=== PATIENT | male | born 1995 | race Caucasian/White ===

== ENCOUNTER 2024-05-02 22:13 | Emergency (ER) | payer SELFPAY ==
[2024-05-02 22:41] LABS: Absolute Basophils 0.1 K/uL (0-0.5); Absolute Eosinophils 0.2 K/uL (0-0.5); Absolute Lymphocytes (CBC) 1.9 K/uL (0.7-4.9); Absolute Monocytes 0.6 K/uL (0.1-1.3); Absolute Neutrophil 5.5 K/uL (1.8-8.0); Basophils % 0.8 % (0-1.3); Eosinophils % 2.6 % (0-4.4); Hematocrit 44.9 % (39.6-49.0); Hemoglobin 15.3 g/dL (13.6-17.9); Lymphocytes % 22.9 % (15.3-44.8); MCH 28.7 pg (27.0-35.0); MCV 84.4 fL (80-100); MPV 6.9 fL (7.6-11.3); Monocytes % 7.8 % (3.3-12.3); Neutrophils % 65.9 % (41.7-73.7); Nucleated Red Blood Cells % 0.2 % (0-0); Platelets 352 thou/uL (152-406); RBC Red Blood Cell Count 5.32 M/uL (4.33-5.43); Red Cell Distribution Width 14.5 % (12.1-15.2)
[2024-05-02] MEDS ORDERED: NA CHLORIDE 0.9% 1,000 ML ONE (22:44)
[2024-05-02 23:00] LABS: ALT/SGPT 52 U/L (16-61); AST/SGOT 18 U/L (15-37); Albumin 3.6 g/dL (3.4-5.0); Alkaline Phosphatase 93 U/L (45-117); Anion Gap 8.7 mEq/L (5.0-15.0); BUN Blood Urea Nitrogen 16 mg/dL (7-18); Bicarbonate 27 mEq/L (21-32); Bilirubin Direct < 0.2 mg/dL (0-0.2); Bilirubin Total 0.2 mg/dL (0.2-1.0); Globulin 3.5 g/dL (2.3-3.5); Glomerular Filtration Rate 122 ml/min (=/>90); Glucose Level 147 mg/dL (74-106); Potassium 3.7 mEq/L (3.5-5.1); Protein, Total 7.1 g/dL (6.4-8.2); Sodium Level 137 mEq/L (136-145); Troponin High Sensitivity 4.6 pg/mL (<58.9)
--- NOTE | 2024-05-03 00:34 | EDPHYS ---
Physician Documentation [facility] Name: Reza Alvarado Age: 28 yrs Sex: Male : 1995 Arrival Date: 05/02/2024 Time: 22:13 Bed 16 Private MD: ED Physician Denzel Hernandez HPI: 05/03 00:30 This 28 yrs old Male presents to ER via EMS with complaints of Chest Pain. 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 States he had similar symptoms last night, but without lightheadedness so he thought it was just gas. Stateshe told his coworker about it and they called medical who recommended he come to the ER. Pt was given aspirin and nitro in route. . Historical: - Allergies: 05/02 22:13 No Known Allergies; ss - Home Meds: 22:13 None [Active]; ss - PMHx: 22:13 None; ss - PSHx: 22:13 None; ss - Immunization history:: Client reports having NOT received the Covid vaccine. - Infectious Disease History:: Denies. - Social history:: Smoking status: Reported history of juuling and/or vaping. ROS: 22:26 Constitutional: As per HPI kb Exam: 22:26 Constitutional: This is a well developed, well nourished patient who is awake, alert, kb and in no acute distress. Head/Face: Normocephalic, atraumatic. ENT: Moist Mucous membranes Cardiovascular: Regular rate Respiratory: Respirations even and unlabored. No increased work of breathing. Talking in full sentences Abdomen/GI: Soft, non-tender. No distention Skin: Warm, dry with normal turgor. Normal color. MS/ Extremity: Pulses equal, no cyanosis. Neurovascular intact. Full, normal range of motion. Neuro: Awake and alert, GCS 15, oriented to person, place, time, and situation. Moves all extremities. Normal gait. 22:26 ECG was reviewed by the Attending Physician. Vital Signs: 22:13 BP 146 / 88; Pulse 85; Resp 14; Temp 98.5; Pulse Ox 99% ; Weight 117.93 kg; Height 5 ss ft. 8 in. ; Pain 0/10; 23:00 BP 120 / 80; Pulse 89; Resp 20; Pulse Ox 97% ; vc1 05/03 01:09 BP 119 / 70; Pulse 80; Resp 19; Pulse Ox 98% ; vc1 05/02 22:13 Body Mass Index 39.53 (117.93 kg, 172.72 cm) ss 05/02 22:13 Pain Scale: Adult ss MDM: 05/02 22:23 Patient medically screened. kb 22:27 Data reviewed: vital signs, nurses notes. kb 23:04 Differential diagnosis: abnormal EKG, acute myocardial infarction, anxiety, chest wall kb pain, gastroesophageal reflux disease (GERD). Historians other than the Patient: EMS: [facility]. 05/03 00:32 Scoring Tools HEART Score: Total Score = 0. kb 00:33 Counseling: I had a detailed discussion with the patient and/or guardian regarding the kb historical points, exam findings, and any diagnostic results supporting the discharge/admit diagnosis, lab results, radiology results, the need for outpatient follow up, a family practitioner, to return to the emergency department if symptoms worsen or persist or if there are any questions or concerns that arise at home. 05/02 22:23 Order name: Basic Metabolic Panel; Complete Time: 23:04 kb 05/02 22:23 Order name: CBC with Diff; Complete Time: 22:45 kb 05/02 22:23 Order name: Hepatic Function; Complete Time: 23:04 kb 05/02 22:23 Order name: Magnesium; Complete Time: 23:04 kb 05/02 22:23 Order name: Troponin High Sensitivity; Complete Time: 23:04 kb 05/02 23:05 Order name: D-Dimer; Complete Time: 00:32 kb 05/02 22:23 Order name: Chest Single View XRAY kb 05/02 22:23 Order name: Cardiac monitoring; Complete Time: 22:41 kb 05/02 22:23 Order name: EKG - Nurse/Tech; Complete Time: 22:41 kb 05/02 22:23 Order name: IV Saline Lock; Complete Time: 22:41 kb 05/02 22:23 Order name: Labs collected and sent; Complete Time: 22:41 kb 05/02 22:23 Order name: O2 Per Protocol; Complete Time: 22:42 kb 05/02 22:23 Order name: O2 Sat Monitoring; Complete Time: 22:42 kb EC/16 22:26 Rate is 86 beats/min. Rhythm is regular. QRS [place] is Normal. IA interval is normal at kb 182 msec. QRS interval is normal at 104 msec. QT interval is normal at 418 msec. Administered Medications: 22:47 Drug: NS 0.9% IV 1000 ml IV at 1000 ml once Route: IV; Rate: 1000 ml; Site: left ss antecubital; 05/03 00:00 Follow up: IV Intake: 1000ml vc1 00:00 Follow up: IV Status: Completed infusion; IV Intake: 1000ml vc1 Disposition: 21:01 Co-signature as Attending Physician, Denzel Hernandez MD I agree with the assessment sp4 and plan of care. I reviewed the patient's care provided by the Advanced Practice Provider and agree with the diagnosis and treatment plan. Disposition Summary: 05/03/24 00:33 Discharge Ordered Notes: Location: Home kb Condition: Stable kb Diagnosis - Chest pain, unspecified kb Followup: kb - With: Emergency Department - When: As needed - Reason: Worsening of condition Followup: kb - With: Private Physician - When: 2 - 3 days - Reason: Recheck today's complaints, Continuance of care, Re-evaluation by your physician Discharge Instructions: - Discharge Summary Sheet kb - Nonspecific Chest Pain, Adult, [id number]-[id number] kb Forms: - Medication Reconciliation Form kb - Antibiotic Education kb - Prescription Opioid Use kb - Patient Portal Instructions kb - Leadership Thank You Letter kb - Work release form vc1 Signatures: Dispatcher [employer] [facility] Verna Linares, OIL BURNER MECHANIC-C OIL BURNER MECHANIC-Jennifer Venegas RN RN Denzel Hernandez MD MD sp4 Adeline Ortega RN vc1 Corrections: (The following items were deleted from the chart) 05/02 22:24 22:24 BASIC METABOLIC PANEL+C.LAB.BRZ ordered. EDMS EDMS 22:24 22:24 CBC+H.LAB.BRZ ordered. EDMS EDMS 22:24 22:24 HEPATIC FUNCTION+C.LAB.BRZ ordered. EDMS EDMS 22:24 22:24 MAGNESIUM+C.LAB.BRZ ordered. EDNH EDMS 22:24 22:24 Troponin High Sensitivity+C.LAB.BRZ ordered. EDNH EDMS 22:24 22:24 Chest Single View+RAD.RAD.BRZ ordered. EDMS EDMS
--- NOTE | 2024-05-03 00:34 | ER ---
Nurse's Notes [facility] Name: Reza Alvarado Age: 28 yrs Sex: Male : 1995 Arrival Date: 05/02/2024 Time: 22:13 Bed 16 Private MD: Diagnosis: Chest pain, unspecified Presentation: 05/02 22:13 Chief complaint: EMS states: chest pain at rest. Coronavirus screen: Client denies ss travel out of the [place] in the last 14 days. At this time, the client does not indicate any symptoms associated with coronavirus-19. Ebola Screen: Patient negative for fever greater than or equal to 101.5 degrees Fahrenheit, and additional compatible Ebola Virus Disease symptoms Patient denies exposure to infectious person. Patient denies travel to an Ebola-affected area in the 21 days before illness onset. No symptoms or risks identified at this time. 22:13 Method Of Arrival: EMS: [facility] ss 22:13 Initial Sepsis Screen: Does the patient meet any 2 criteria? No. Patient's initial ss sepsis screen is negative. Does the patient have a suspected source of infection? No. Patient's initial sepsis screen is negative. Risk Assessment: Do you want to hurt yourself or someone else? Patient reports no desire to harm self or others. Onset of symptoms was May 02, 2024. Care prior to arrival: Medication(s) given: ASA, 81 mg, x 4, Nitroglycerin, 0.4 mg SL x 1. Activity prior to arrival: None. Mechanism of Injury: No Mechanism of Injury. Transition of care: patient was not received from another setting of care. 22:13 Acuity: JUAN J 3 ss Triage Assessment: 22:39 General: Appears in no apparent distress. comfortable, obese, well groomed, well ss developed, Behavior is calm, cooperative, appropriate for age. Pain: Complains of pain in chest Pain radiates to right arm and left arm. EENT: No deficits noted. No signs and/or symptoms were reported regarding the EENT system. Neuro: Level of Consciousness is awake, alert, obeys commands, Oriented to person, place, time, situation, Appropriate for age. Cardiovascular: Heart tones S1 S2 present Capillary refill < 3 seconds Patient's skin is warm and dry. Chest pain is described as mild, quality is pressure. Respiratory: Airway is patent Respiratory effort is even, unlabored, Respiratory pattern is regular, symmetrical, Breath sounds are clear bilaterally. GI: Abdomen is round non-distended, Bowel sounds present X 4 quads. Abd is soft and non tender. : No deficits noted. No signs and/or symptoms were reported regarding the genitourinary system. Derm: Skin is intact, is healthy with good turgor, Skin is dry, Skin is normal, Skin temperature is warm. Musculoskeletal: Circulation, motion, and sensation intact. Range of motion: intact in all extremities. Historical: - Allergies: 22:13 No Known Allergies; ss - Home Meds: 22:13 None [Active]; ss - PMHx: 22:13 None; ss - PSHx: 22:13 None; ss - Immunization history:: Client reports having NOT received the Covid vaccine. - Infectious Disease History:: Denies. - Social history:: Smoking status: Reported history of juuling and/or vaping. Screenin:35 [facility] ED Fall Risk Assessment (Adult) History of falling in the last 3 months, ss including since admission No falls in past 3 months (0 pts) Confusion or Disorientation No (0 pts) Intoxicated or Sedated No (0 pts) Impaired Gait No (0 pts) Mobility Assist Device Used No (0 pt) Altered Elimination No (0 pt) Score/Fall Risk Level 0 - 2 = Low Risk Oriented to surroundings, Maintained a safe environment, Educated pt \T\ family on fall prevention, incl call for assistance when getting out of bed. Abuse screen: Denies threats or abuse. Nutritional screening: No deficits noted. Tuberculosis screening: No symptoms or risk factors identified. Assessment: 22:42 General: See triage assessment. ss 05/03 00:00 Reassessment: Patient denies pain at this time. Patient states feeling better. Patient vc1 states symptoms have improved. 01:00 Reassessment: Patient appears in no apparent distress at this time. No changes from vc1 previously documented assessment. Patient and/or family updated on plan of care and expected duration. Pain level reassessed. Patient is alert, oriented x 3, equal unlabored respirations, skin warm/dry/pink. Vital Signs: 05/02 22:13 BP 146 / 88; Pulse 85; Resp 14; Temp 98.5; Pulse Ox 99% ; Weight 117.93 kg; Height 5 ss ft. 8 in. ; Pain 0/10; 23:00 BP 120 / 80; Pulse 89; Resp 20; Pulse Ox 97% ; vc1 05/03 01:09 BP 119 / 70; Pulse 80; Resp 19; Pulse Ox 98% ; vc1 05/02 22:13 Body Mass Index 39.53 (117.93 kg, 172.72 cm) ss 05/02 22:13 Pain Scale: Adult ss ED Course: 05/02 22:20 Patient arrived in ED. rv1 22:23 Verna Linares FNP-C is PHCP. kb 22:23 Denzel Hernandez MD is Attending Physician. kb 22:37 Triage completed. ss 22:38 Arm band placed on right wrist. ss 22:38 Patient has correct armband on for positive identification. Placed in gown. Bed in low ss position. Call light in reach. vehicle monitor technician on. Pulse ox on. NIBP on. 22:41 Inserted saline lock: 20 gauge in left antecubital area, using aseptic technique. Blood ss collected. Flushed with 10 mL NS. 22:44 Chest Single View XRAY In Process Unspecified. EDMS 05/03 01:08 Adeline Ortega, RN is Primary Nurse. vc1 01:10 Provided Education on: f/u with PCP. vc1 01:10 No provider procedures requiring assistance completed. IV discontinued, intact, vc1 bleeding controlled, No redness/swelling at site. Pressure dressing applied. Administered Medications: 05/02 22:47 Drug: NS 0.9% IV 1000 ml IV at 1000 ml once Route: IV; Rate: 1000 ml; Site: left ss antecubital; 05/03 00:00 Follow up: IV Intake: 1000ml vc1 00:00 Follow up: IV Status: Completed infusion; IV Intake: 1000ml vc1 Medication: 05/02 22:38 VIS not applicable for this client. ss Intake: 05/03 00:00 IV: 1000ml; Total: 1000ml. vc1 00:00 IV: 1000ml; Total: 2000ml. vc1 Outcome: 00:33 Discharge ordered by . kb 01:10 Discharged to home ambulatory, vc1 01:10 Condition: improved 01:10 Discharge instructions given to patient, Instructed on discharge instructions, follow up and referral plans. Demonstrated understanding of instructions, follow-up care, 01:10 Patient left the ED. vc1 Signatures: Dispatcher [employer] EDVerna Amaro, AI MORELOS-Jennifer Venegas RN RN Adeline Ortega RN RN vc1 April Rodriguez rv1 Corrections: (The following items were deleted from the chart) 01:10 00:00 Reassessment: Patient appears in no apparent distress at this time. No changes vc1 from previously documented assessment. Patient and/or family updated on plan of care and expected duration. Pain level reassessed. Patient is alert, oriented x 3, equal unlabored respirations, skin warm/dry/pink. vc1 01:11 01:11 IV Status: Completed infusion; IV Intake: 1000ml vc1 vc1
[2024-05-03 01:44] VITALS: TEMP 98.5
[2024-05-03 01:47] VITALS: BP 119/70; O2SAT 98
--- NOTE | 2024-05-03 08:38 | RAD REPORT ---
EXAM: Chest Single View CLINICAL INDICATION: 28-year-old male with pain and palpitations. TECHNIQUE: Single view, AP portable chest was obtained. COMPARISON: None. FINDINGS: Unremarkable cardiac and mediastinal silhouette. Heart size is normal. Low lung volumes without focal opacity, pneumothorax or pleural effusions. The visualized bones are w ithin normal limits. IMPRESSION: No acute cardiopulmonary abnormalities. Electronically signed by: Anastasia Lyman MD 05/02/2024 11:08 PM CDT RP Due to temporary technical issues with PACS / Fluency reporting system, reports are being signed by the in-house radiologist without review as a courtesy to ensure prompt reporting. The interpreting radiologist is fully responsible for the content of the report. Transcribed Date/Time: 05/03/2024 8:38 AM
--- NOTE | 2024-05-03 16:56 | EKG ---
Test Date: 2024-05-02 Test Time: 22:19:39 Protective Signal Superintendent: FÉLIX MEASUREMENT RESULTS: Intervals: Rate: 86 MD: 182 QRSD: 104 QT: 350 QTc: 418 [place]: P: 57 MD: 182 QRS: -10 T: 59 INTERPRETIVE STATEMENTS: Normal sinus rhythm Normal ECG No previous ECG available for comparison Electronically Signed On 05-03-24 16:54:46 CDT by Marcin Ingram
== END 2024-05-03 01:10 | disposition home or self-care (01) ==
LOC: ER 22:13
DX: R07.9 Chest pain, unspecified (principal)
CPT/HCPCS: 36415; 71045; 80048; 80076; 83735; 84484; 85025; 85379; 93005; 96360; 99285; J7030